=== PATIENT | female | born 1990 | race Caucasian/White ===

== ENCOUNTER → 2018-08-01 | Outpatient (REF) | payer BC ==
[~2018-08-01] MED LIST: IBUP600T26 PO; MOTR200T44 PO; PRENTAB74 PO
== END ==
LOC: M LAB REF 17:05
PROVIDERS: ATTEND Physician Assistant Medical
DX: J02.9 Acute pharyngitis, unspecified (principal)

== ENCOUNTER → 2019-02-23 | Outpatient (REF) | payer BC ==
[2019-02-23 17:48] LABS: HEMATOCRIT 37.6 % (36.0-47.0); HEMOGLOBIN 13.3 g/dl (12.0-15.5); MEAN CORPUSCULAR HEMOGLOBIN 30.4 pg (27.0-33.0); MEAN CORPUSCULAR HGB CONC 35.4 g/dl (32.0-36.5); PLATELET COUNT, AUTOMATED 214 10^3/uL (150-450); RED BLOOD COUNT 4.37 10^6/uL (4.00-5.40); WHITE BLOOD COUNT 8.2 10^3/uL (4.0-10.0)
[2019-02-23 18:21] LABS: HCG, SERUM QUANTITATIVE 158082 MIU/ML
[2019-02-24 09:02] LABS: RUBELLA IgG QUALITATIVE IMMUNE (IMMUNE)
[2019-02-24 09:31] LABS: HIV 1&2 SCREEN CENTAUR NEGATIVE (NEGATIVE)
[2019-02-24 13:32] LABS: HEPATITIS C VIRUS ABY INDEX 0.1 INDEX (<0.8)
== END ==
LOC: M LAB REF 16:32
PROVIDERS: ATTEND Obstetrics & Gynecology
DX: O36.80X0 Pregnancy with inconclusive fetal viability, not applicable or unspecified (principal); Z3A.00 Weeks of gestation of pregnancy not specified

== ENCOUNTER → 2019-02-26 | Outpatient (CLI) | payer BC ==
--- NOTE | 2019-02-26 14:22 | REP ---
FIRST TRIMESTER ULTRASOUND: Real-time sonographic evaluation of gravid uterus performed. There is a single living intrauterine gestation, estimated gestational age 6 weeks 5 days based on crown-rump length of 8 mm, EDC 10/17/2019. heart rate 131 beats per minute. Subchorionic hemorrhage is seen measuring 6.5 x 1.1 x 4.2 cm. No maternal adnexal region abnormality is seen. Electronically Signed by Mina Tomlinson MD 02/27/2019 03:20 P
== END ==
LOC: M RAD 12:33
PROVIDERS: ATTEND Obstetrics & Gynecology
DX: O36.80X0 Pregnancy with inconclusive fetal viability, not applicable or unspecified (principal); Z3A.01 Less than 8 weeks gestation of pregnancy; O20.8 Other hemorrhage in early pregnancy

== ENCOUNTER 2019-03-16 10:55 | Emergency (ER) | payer BC ==
[~2019-03-16] VITALS: Ht 170.2 cm; Wt 74.6 kg
[2019-03-16 12:30] LABS: BILIRUBIN, URINE MANUAL NEGATIVE (NEGATIVE); GLUCOSE, URINE (UA) MANUAL NEGATIVE (NEGATIVE); KETONE, URINE MANUAL NEGATIVE (NEGATIVE); UROBILINOGEN, URINE MANUAL NORMAL (NORMAL)
[2019-03-16 12:41] LABS: RBC, URINE NONE SEEN /hpf (0-3)
[2019-03-16 12:42] LABS: BACTERIA, URINE SMALL AMOUNT; HYALINE CAST, URINE NONE SEEN /lpf (0-1); SQUAMOUS EPITHELIAL CELL URINE MOD AMOUNT /hpf (SMALL AMT)
[2019-03-16] MEDS ORDERED: LIDOCAINE 2% 5ML JELLY UROJET TOP ONE (14:30)
--- NOTE | 2019-03-16 15:10 | REP ---
RENAL ULTRASOUND: Real-time sonographic evaluation of the kidney is performed. The kidneys are normal in size and echotexture, right kidney measuring 1.7 x 5.2 x 4.6 cm and left kidney 10.9 x 4.6 x 5.2 cm. There is mild to moderate right hydronephrosis. There is mid left hydronephrosis. There is also mild proximal hydroureter bilaterally. IMPRESSION: Mild to moderate right hydronephrosis. Mild left hydronephrosis. No renal stone visualized. Electronically Signed by Mina Tomlinson MD 03/17/2019 01:49 P
--- NOTE | 2019-03-16 15:13 | REP ---
URINARY BLADDER ULTRASOUND: Real-time sonographic evaluation of the urinary bladder performed. Note is made of an intrauterine living gestation. heart rate is 176 beats per minute. Urinary bladder measures 14.8 x 12.0 x 8.6 cm for a total volume of 997 mL. Patient voided very little and postvoid residual is 1087 mL. No stone is visualized in the bladder lumen. Ureteral jets could not be visualized with Doppler color evaluation. Transvaginal ultrasound of the urethra demonstrates two ill-defined linear echogenic foci likely representing tiny foci of air. Electronically Signed by Mina Tomlinson MD 03/17/2019 10:24 P
[2019-03-16 15:51] VITALS: BP 109/65
== END 2019-03-16 16:06 | disposition home or self-care (01) ==
LOC: M ED 10:55
DX: O26.831 Pregnancy related renal disease, first trimester (principal); R33.9 Retention of urine, unspecified; Z3A.00 Weeks of gestation of pregnancy not specified

== ENCOUNTER → 2019-03-25 | Outpatient (CLI) | payer BC ==
--- NOTE | 2019-03-25 18:19 | REP ---
First trimester ultrasound for viability: There is an intrauterine gestational sac with a pole. The heart rate is 168 beats per minute. The pole crown-rump length is 5.0 cm. This corresponds to 11 weeks 5 days gestational age. The ROLF is 10/09/2019. Gestational age by the first ultrasound is 10 weeks 4 days/ROLF 10/17/2019. Gestational age by LMP is 11 weeks 2 days/ROLF 10/12/2019 . The maternal adnexa and cul-de-sac are unremarkable. On the prior study of 02/26/2019 there was a subchorionic hematoma. This hematoma has resolved. There is no subchorionic hematoma today. Electronically Signed by Mina Rebolledo MD 03/25/2019 06:12 P
== END ==
LOC: M RAD 13:00
PROVIDERS: ATTEND Obstetrics & Gynecology
DX: O36.80X0 Pregnancy with inconclusive fetal viability, not applicable or unspecified (principal); Z3A.10 10 weeks gestation of pregnancy

== ENCOUNTER → 2019-05-24 | Outpatient (CLI) | payer BC ==
--- NOTE | 2019-05-24 11:33 | REP ---
OB ULTRASOUND: Real-time sonographic evaluation of the gravid uterus performed. There is a single living intrauterine gestation, estimated gestational age 19 weeks 6 days. EDC 10/12/2019. Today's measurements indicate appropriate growth. Biometry and Growth: BPD 45 mm = 19 weeks 4 days, 40th percentile HC 173 mm = 190 weeks 6 days, 47th percentile AC 158 mm = 21 weeks 0 days, 72nd percentile FL 34 cm = 20 weeks 4 days, 60th percentile HC/AC ratio 1.09 within normal range of 1.06 to 1.25. Estimated weight 367 grams, 74th percentile. SEEN/GROSSLY UNREMARKABLE Lateral ventricles Yes Posterior fossa Yes Upper lip Yes Four-chamber heart Yes LVOT Yes RVOT Yes Stomach Yes Cord insertion Yes Three vessel cord Yes Kidneys Yes Bladder Yes Spine Yes Cervical length: Closed and measures 4.7 cm in length. heart rate: 155 beats per minute. position: Transverse with head toward the maternal left side. Placenta: Anterior and grade 0 with no previa or abruption. Amniotic fluid: Within normal limits. Electronically Signed by Mina Tomlinson MD 05/24/2019 03:11 P
== END ==
LOC: M RAD 09:27
PROVIDERS: ATTEND Obstetrics & Gynecology
DX: Z34.82 Encounter for supervision of other normal pregnancy, second trimester (principal); Z3A.19 19 weeks gestation of pregnancy

== ENCOUNTER → 2019-07-19 | Outpatient (CLI) | payer BC ==
[2019-07-19 11:20] LABS: HEMATOCRIT 34.9 % (36.0-47.0); HEMOGLOBIN 12.2 g/dl (12.0-15.5); MEAN CORPUSCULAR HEMOGLOBIN 32.1 pg (27.0-33.0); MEAN CORPUSCULAR VOLUME 91.8 fl (80.0-96.0); PLATELET COUNT, AUTOMATED 163 10^3/uL (150-450); WHITE BLOOD COUNT 7.8 10^3/uL (4.0-10.0)
== END ==
LOC: M LAB 09:20
PROVIDERS: ATTEND Obstetrics & Gynecology
DX: Z34.82 Encounter for supervision of other normal pregnancy, second trimester (principal)

== ENCOUNTER 2019-10-16 12:28 | Outpatient (CLI) | payer BC ==
[~2019-10-16] VITALS: Ht 167.6 cm; Wt 77.7 kg
[2019-10-16 12:53] VITALS: BP 130/83
[2019-10-16] MEDS ORDERED: PRENTAB9 PO (13:03)
[2019-10-16 13:40] VITALS: BP 117/75
[2019-10-16 15:20] VITALS: BP 130/87
== END 2019-10-16 15:40 | disposition home or self-care (01) ==
LOC: M LDO 12:28
PROVIDERS: ATTEND Specialist
DX: O47.1 False labor at or after 37 completed weeks of gestation (principal); Z3A.40 40 weeks gestation of pregnancy
CPT/HCPCS: 59025; G0378; G0463

== ENCOUNTER 2019-10-16 19:21 | Inpatient (IN) | payer BC ==
[~2019-10-16] VITALS: Ht 170.2 cm; Wt 77.9 kg
[~2019-10-16 19:21] MED LIST changes: +PRENTAB9 PO
[2019-10-16 19:43] VITALS: BP 125/76
[2019-10-16] MEDS ORDERED: LR 1,000 ML IV SCH (20:05)
[2019-10-16] MEDS ORDERED: LACTATED RINGER'S 1000 ML IV STA (20:05)
[2019-10-16] MEDS ORDERED: OXYTOCIN 30 UNITS IN 0.9% NaCl 500ML IV BAG (J2590) As Ordered ONE (20:51)
[2019-10-16 20:52] LABS: HEMATOCRIT 37.4 % (36.0-47.0); HEMOGLOBIN 13.4 g/dl (12.0-15.5); MEAN CORPUSCULAR HEMOGLOBIN 32.4 pg (27.0-33.0); MEAN CORPUSCULAR HGB CONC 35.8 g/dl (32.0-36.5); MEAN CORPUSCULAR VOLUME 90.6 fl (80.0-96.0); PLATELET COUNT, AUTOMATED 207 10^3/uL (150-450); RED BLOOD COUNT 4.13 10^6/uL (4.00-5.40)
[2019-10-16 21:10] VITALS: BP 128/72
[2019-10-16] MEDS ORDERED: RHOGAM 300 MCG (1500 IU) INJ (J2790) IM SCH (21:15)
[2019-10-16] MEDS ORDERED: ONDANSETRON 4MG/2ML VIAL IV PRN (21:15)
[2019-10-16] MEDS ORDERED: ACETAMINOPHEN TAB 650MG DOSE (2X325MG) PO PRN (21:15)
[2019-10-16] MEDS ORDERED: DIBUCAINE 1% OINTMENT 30GM TOP PRN (21:15)
[2019-10-16] MEDS ORDERED: ACETAMINOPHEN 500 MG TAB PO PRN (21:15)
[2019-10-16] MEDS ORDERED: DOCUSATE SODIUM 100 MG CAP PO PRN (21:15)
[2019-10-16] MEDS ORDERED: OXYTOCIN DRIP 30 UNITS in IV 1 EA IV ONE (21:15)
[2019-10-16] MEDS ORDERED: IBUPROFEN 800 MG TAB PO PRN (21:15)
[2019-10-16] MEDS ORDERED: MEASLES,MUMPS,RUBELLA VACCINE INJ (MMR-II) (90707) SC SCH (21:15)
[2019-10-16] MEDS ORDERED: METHYLERGONOVINE MALEATE 0.2 MG TAB PO PRN (21:15)
[2019-10-16 21:27] VITALS: BP 127/87
[2019-10-16 21:41] VITALS: BP 112/76
[2019-10-16 22:49] VITALS: BP 127/74
[2019-10-17] MEDS: IBUPROFEN 600MG TAB PO PRN ×2 (01:17→16:14)
[2019-10-17 06:10] VITALS: BP 108/60
[2019-10-17 18:00] VITALS: BP 126/57
[2019-10-18 06:03] VITALS: BP 112/59
[2019-10-18] MEDS ORDERED: ACET-683 PO (08:09)
[2019-10-18] MEDS ORDERED: IBUP80TA PO (08:09)
[2019-10-18] MEDS: PRENATAL VITAMINS CHEWABLE TABLET PO SCH ×2 (09:00→09:01)
--- NOTE | 2019-10-19 16:37 | DN ---
DATE OF DELIVERY: 10/16/2019 TIME OF : GENDER: Male SCORES: 8 and 9. PREDELIVERY DIAGNOSIS: 40 weeks gestation labor. POSTDELIVERY DIAGNOSIS: Delivered. PROCEDURE: Spontaneous vaginal delivery. ENVIRONMENTAL ATTORNEY: Nick Zavala MD ANESTHESIA: None. ESTIMATED BLOOD LOSS: 300 cc. FINDINGS: 7 pound 15 ounce male infant with Apgars 8 and 9. DESCRIPTION OF DELIVERY: After a short second stage of approximately 10 minutes, the patient had spontaneous delivery of a 7 pound 15 ounce male infant with Apgars 8 and 9 and with no delivery of anesthesia. Nuchal cord times one was reduced manually. The shoulders delivered with ease. The was handed to the mother. The cord was doubly clamped and cut. The placenta delivered spontaneously and appeared to be intact. There were no vaginal lacerations present. Sponge counts were correct. MTDD
== END 2019-10-18 16:36 | disposition home or self-care (01) | DRG 560 ==
LOC: M LDO 19:21 → M LDI 19:58 → M OBS 22:48
PROVIDERS: ADMIT Specialist; ATTEND Specialist
PROC: 10E0XZZ Delivery of Products of Conception, External Approach (ICD-10-PCS; principal; 2019-10-16)
DX: O69.81X0 Labor and delivery complicated by cord around neck, without compression, not applicable or unspecified (principal); Z37.0 Single live birth; Z3A.40 40 weeks gestation of pregnancy

== ENCOUNTER → 2020-04-04 | Outpatient (CLI) | payer BC ==
[~2020-04-04] MED LIST changes: +ACET-683 PO; +IBUP80TA PO
--- NOTE | 2020-04-04 09:41 | REP ---
INDICATION: FALL PAIN RT ARM COMPARISON: None. TECHNIQUE: AP and lateral views of the right forearm. FINDINGS: There is a fracture at the radial head at the elbow with overlying soft tissue swelling. IMPRESSION: Acute radial head fracture. <Electronically signed by Segundo Mckinley > 04/04/20 [id number]
--- NOTE | 2020-04-04 10:21 | REP ---
INDICATION: FALL PAIN RT ARM COMPARISON: None. TECHNIQUE: AP, lateral, bilateral oblique views of the right elbow. FINDINGS: There is an acute fracture at the radial head with surrounding soft tissue swelling. IMPRESSION: Acute radial head fracture with soft tissue swelling. <Electronically signed by Segundo Mckinley > 04/04/20 [id number]
== END ==
LOC: M WUC 09:12
PROVIDERS: ATTEND Physician Assistant
DX: M79.601 Pain in right arm (principal)

== ENCOUNTER 2023-03-05 14:02 | Day surgery (SDC) | payer BC, OTHER ==
[~2023-03-05] VITALS: Ht 167.6 cm; Wt 71.7 kg
[~2023-03-05 14:02] MED LIST changes: +[UNRECOGNIZED DRUG - OTHER] PO
[2023-03-05 14:27] LABS: HEMOGLOBIN 14.1 g/dl (12.0-15.5); MEAN CORPUSCULAR HEMOGLOBIN 30.5 pg (27.0-33.0); MEAN CORPUSCULAR HGB CONC 35.3 g/dl (32.0-36.5); MEAN CORPUSCULAR VOLUME 86.4 fl (80.0-96.0); PLATELET COUNT, AUTOMATED 221 10^3/uL (150-450); RED BLOOD COUNT 4.63 10^6/uL (4.00-5.40); WHITE BLOOD COUNT 7.5 10^3/uL (4.0-10.0)
[2023-03-05] MEDS ORDERED: LIDOCAINE W/EPINEPHRINE 1% 20ML VIAL As Ordered ONE (17:19)
[2023-03-05] MEDS ORDERED: MIDAZOLAM INJ 2MG/2ML VIAL As Ordered ONE (17:20)
[2023-03-05] MEDS ORDERED: propofoL 200 MG/20 ML VIAL As Ordered ONE (17:20)
[2023-03-05] MEDS ORDERED: fentaNYL 100 MCG/2 ML INJECTION As Ordered ONE (17:20)
[2023-03-05] MEDS ORDERED: ACETAMINOPHEN 1000MG 100ML IV BAG As Ordered ONE (17:20)
[2023-03-05] MEDS ORDERED: LIDOCAINE 2% 100MG/5ML SDV (FOR ANES.) As Ordered ONE (17:20)
[2023-03-05] MEDS ORDERED: ONDANSETRON 4MG 2ML VIAL As Ordered ONE (17:23)
[2023-03-05] MEDS ORDERED: LIDOCAINE 1% MDV 20ML VIAL As Ordered ONE (17:38)
[2023-03-05 18:25] VITALS: BP 135/74; TEMP 98.2; O2SAT 98
== END 2023-03-05 18:29 | disposition home or self-care (01) ==
LOC: M SDC 14:02
PROVIDERS: ATTEND Obstetrics & Gynecology
DX: N87.1 Moderate cervical dysplasia (principal)
CPT/HCPCS: 36415; 57522; 81025; 85027; 86850; 86900; 86901; 88305; 88307; J0131; J2250; J2405; J3010

== ENCOUNTER 2024-10-19 17:59 | Emergency (ER) | payer OTHER ==
[~2024-10-19] VITALS: Ht 170.2 cm; Wt 75.5 kg
[2024-10-19 22:10] VITALS: BP 129/92; TEMP 97.8; O2SAT 100
== END 2024-10-19 22:36 | disposition left against medical advice (07) ==
LOC: M ED 17:59
DX: Z53.21 Procedure and treatment not carried out due to patient leaving prior to being seen by health care provider (principal)